=== PATIENT | male | born 1940 | race Caucasian/White ===

== ENCOUNTER 2017-09-09 16:56 | Observation (INO) | payer OTHER ==
--- OUTSIDE RECORDS SUMMARY | 2017-09-09 16:58 | XMS REPORT | Clinical Summary ---
:1940 Author Organization [facility] Address [address] [place] [address] Care Team Providers Name Role Phone Parker Solares MD Primary Care Provider Allergies Active Allergy Reactions Severity Noted Date Comments Abciximab 04/02/2017 Phrrnfc-Nht-Hli Reductase Inhibitors 04/02/2017 Tramadol 04/02/2017 Current Medications Prescription Sig. Disp. Refills Start Date End Date Status aspirin (ECOTRIN) Take 81 mg by Active 81 MG enteric mouth daily. coated tablet pimavanserin Take 2 Active (NUPLAZID) 17 mg tablets by tablet mouth daily. carbidopa-levodopa 2.5 / 2 / 2 / 800 tablet 3 08/30/2017 Active (SINEMET) 25-100 mg 2 per tablet donepezil (ARICEPT) Take 1 tablet 180 tablet 3 08/30/2017 Active 10 MG tablet (10 mg total) by mouth 2 (two) times a day. midodrine Titrate up to 540 tablet 3 08/30/2017 Active (PROAMATINE) 2.5 MG 2 pills tablet 3x/day carbidopa-levodopa Take by 04/02/2017 Discontinued (SINEMET) 25-100 mg mouth. 2.5 per tablet /2.5/ 2 donepezil (ARICEPT) Take 10 mg by 04/02/2017 Discontinued 10 MG tablet mouth nightly. midodrine Take 2.5 mg 04/02/2017 Discontinued (PROAMATINE) 2.5 MG by mouth 3 tablet (three) times a day. midodrine Take 1 tablet 270 tablet 3 04/02/2017 08/30/2017 Discontinued (PROAMATINE) 2.5 MG (2.5 mg tablet total) by mouth 3 (three) times a day. donepezil (ARICEPT) Take 1 tablet 90 tablet 3 04/02/2017 08/30/2017 Discontinued 10 MG tablet (10 mg total) by mouth nightly. 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 (Primary Dx); Dementia due to Parkinson's disease with behavioral disturbance 04/20/2017 Telephone Neurology Hossein Sandoval MD 04/02/2017 Office Visit Neurology Hossein Sandoval, Parkinsonian syndrome associated with idiopathic orthostatic hypotension (Primary Dx); Dementia due to Parkinson's disease with behavioral disturbance; Hallucinations, visual 12/14/2016 Telephone Neurology Hossein Sandoval MD after 09/08/2016 Family History Medical History Relation Name Comments Prostate cancer Father Cancer Mother endometrium Relation Name Status Comments Father Mother Social History Tobacco Use Types Packs/Day Years Used Date Never Smoker Smokeless Tobacco: Never Used Sex Assigned at Date Recorded Not on file Last Filed Vital Signs Vital Sign Reading Time Taken Blood Pressure 119/68 08/30/2017 10:40 AM CDT Pulse 55 08/30/2017 10:40 AM CDT Temperature - - Respiratory Rate - - Oxygen Saturation - - Inhaled Oxygen Concentration - - Weight 77.6 kg (171 lb) 08/30/2017 10:37 AM CDT Height 175.3 cm (5' 9") 08/30/2017 10:37 AM CDT Body Mass Index 25.25 08/30/2017 10:37 AM CDT Plan of Treatment Date Type Specialty Care Team Description 02/03/2018 Office Visit Neurology Hossein Sandoval MD [address] [address] Health Maintenance Due Date Last Done Comments SHINGRIX VACCINE (#1) 1990 ZOSTER VACCINE 2000 PNEUMOCOCCAL POLYSACCHARIDE VACCINE AGE 65 AND OVER 2005 PNEUMOCOCCAL-13 2005 INFLUENZA VACCINE 12/01/2017 Results Not on fileafter 09/08/2016 Insurance Payer Benefit Plan / Group Subscriber ID Type Phone Address MEDICARE MEDICARE PART A AND B xxxxxxxxxx Medicare [place], [place] COMMERCIAL MISC MISC COMMERCIAL xxxxxxxxxx Commercial [phone] [address]
--- NOTE | 2017-09-09 17:44 | RAD REPORT ---
EXAM DESCRIPTION: CT - Head Brain Wo Cont - 09/09/2017 5:38 pm CLINICAL HISTORY: Altered consciousness. COMPARISON: None. TECHNIQUE: All CT scans are performed using dose optimization technique as appropriate and may inclu de automated exposure control or mA/KV adjustment according to patient size. FINDINGS: No intracranial hemorrhage, hydrocephalus or extra-axial fluid collection.Mild generalized brain atrophy is present with mild periventricular and deep white matter chronic microvascular ische nicky changes.No areas of brain edema or evidence of midline shift. The paranasal sinuses and mastoids are clear. The calvarium is intact. IMPRESSION: No acute intracranial abnormality.
--- NOTE | 2017-09-09 18:00 | RAD REPORT ---
EXAM DESCRIPTION: RAD - Chest Single View - 09/09/2017 5:51 pm CLINICAL HISTORY: Chest pain. COMPARISON: 08/23/2017 FINDINGS: Portable technique limits examination quality. The lungs are underinflated with vascular crowding. The heart is upper limit of normal in size with t ortuous thoracic aorta. No displaced fractures. IMPRESSION: Underinflated lungs.
[2017-09-09 18:04] LABS: Absolute Lymphocytes (CBC) 2.2 K/uL (0.7-4.9); Absolute Monocytes 0.7 K/uL (0.1-1.3); Absolute Neutrophil 4.8 K/uL (1.8-8.0); Basophils % 1.2 % (0-1.3); Eosinophils % 4.3 % (0-4.4); Hematocrit 44.7 % (39.6-49.0); MCH 30.9 pg (27.0-35.0); MCV 91.7 fL (80-100); MPV 9.7 fL (7.6-11.3); Monocytes % 8.9 % (3.3-12.3); RBC Red Blood Cell Count 4.88 M/uL (4.33-5.43)
[2017-09-09 18:14] LABS: Protime INR 1.03
--- NOTE | 2017-09-09 18:27 | EDPHYS ---
Physician Documentation [facility] Name: Adilson Pereira Age: 77 yrs Sex: Male : 1940 Arrival Date: 09/09/2017 Time: 17:00 Bed 4 Private MD: ED Physician Chito Luther HPI: 09/09 17:32 This 77 yrs old Male presents to ER via EMS with complaints of Altered Mental mario Status. 17:32 The patient presents with decreased mental status, decreased responsiveness. Onset: The mario symptoms/episode began/occurred just prior to arrival, today. Possible causes: unknown. Associated signs and symptoms: The patient has no apparent associated signs or symptoms. Current symptoms: In the emergency department the patient's symptoms are unchanged from the initial presentation. Patient's baseline: Neuro: alert and fully oriented. Historical: - Allergies: 17:26 tramadol; sg 17:33 Orafsiq-Nba-Usc Reductase Inhibitors; sg 17:33 Reopro; sg - Home Meds: 17:33 carbidopa-levodopa 25-100 mg Oral tab 1 tab 4 times per day [Active]; donepezil 10 mg sg oral tab 1 tab twice daily [Active]; midodrine 2.5 mg oral tab 2 tabs 3 times per day [Active]; Nuplazid 17 mg oral tab 2 tabs once daily [Active]; aspirin 81 mg Oral chew 1 tab once daily [Active]; - PMHx: 17:26 Parkinsons; Dementia; Diverticulitis; Osteoarthritis; BPH; sg - Immunization history:: Adult Immunizations up to date. - Social history:: Smoking status: unknown. ROS: 17:33 Constitutional: Negative for fever, chills, and weight loss, Eyes: Negative for injury, mario pain, redness, and discharge, ENT: Negative for injury, pain, and discharge, Neck: Negative for injury, pain, and swelling, Cardiovascular: Negative for chest pain, palpitations, and edema, Respiratory: Negative for shortness of breath, cough, wheezing, and pleuritic chest pain, Abdomen/GI: Negative for abdominal pain, nausea, vomiting, diarrhea, and constipation, Back: Negative for injury and pain, : Negative for injury, bleeding, discharge, and swelling, MS/Extremity: Negative for injury and deformity, Skin: Negative for injury, rash, and discoloration, Psych: Negative for depression, anxiety, suicide ideation, homicidal ideation, and hallucinations, Allergy/Immunology: Negative for hives, rash, and allergies, Endocrine: Negative for neck swelling, polydipsia, polyuria, polyphagia, and marked weight changes, Hematologic/Lymphatic: Negative for swollen nodes, abnormal bleeding, and unusual bruising. 17:33 Neuro: Positive for altered mental status, speech changes, weakness. Exam: 17:33 Constitutional: This is a well developed, well nourished patient who is awake, alert, mario and in no acute distress. Head/Face: Normocephalic, atraumatic. Eyes: Pupils equal round and reactive to light, extra-ocular motions intact. Lids and lashes normal. Conjunctiva and sclera are non-icteric and not injected. Cornea within normal limits. Periorbital areas with no swelling, redness, or edema. ENT: Nares patent. No nasal discharge, no septal abnormalities noted. Tympanic membranes are normal and external auditory canals are clear. Oropharynx with no redness, swelling, or masses, exudates, or evidence of obstruction, uvula midline. Mucous membranes moist. Neck: Trachea midline, no thyromegaly or masses palpated, and no cervical lymphadenopathy. Supple, full range of motion without nuchal rigidity, or vertebral point tenderness. No Meningismus. Chest/axilla: Normal chest wall appearance and motion. Nontender with no deformity. No lesions are appreciated. Cardiovascular: Regular rate and rhythm with a normal S1 and S2. No gallops, murmurs, or rubs. Normal PMI, no JVD. No pulse deficits. Respiratory: Lungs have equal breath sounds bilaterally, clear to auscultation and percussion. No rales, rhonchi or wheezes noted. No increased work of breathing, no retractions or nasal flaring. Abdomen/GI: Soft, non-tender, with normal bowel sounds. No distension or tympany. No guarding or rebound. No evidence of tenderness throughout. Back: No spinal tenderness. No costovertebral tenderness. Full range of motion. Male : Normal genitalia with no discharge or lesions. Skin: Warm, dry with normal turgor. Normal color with no rashes, no lesions, and no evidence of cellulitis. MS/ Extremity: Pulses equal, no cyanosis. Neurovascular intact. Full, normal range of motion. Psych: Awake, alert, with orientation to person, place and time. Behavior, mood, and affect are within normal limits. 17:33 Neuro: Orientation: unable to test, Mentation: slow to respond, Memory: unable to test, Cranial nerves: is grossly normal based on the patient's age, no acute changes, Cerebellar function: is grossly normal based on the patient's age, no acute changes, Motor: is normal, is grossly normal based on the patient's age, Sensation: is normal, Gait: not tested. Deep tendon reflexes are 2+ (normal) in the bilateral brachioradialis, bicep, tricep and patellar and Achilles tendons, seizure activity, is not displayed by the patient. 19:31 Radiologist reports: neg [facility] Vital Signs: 17:03 BP 141 / 86; Pulse 67; Resp 17; Temp 98.9; Pulse Ox 100% on R/A; sg 18:15 BP 123 / 77; Pulse 62; Resp 17 S; Pulse Ox 96% on R/A; Pain 0/10; sg 19:35 BP 127 / 81; Pulse 59; Resp 16; Pulse Ox 97% ; Pain 0/10; ao MDM: 17:06 Patient medically screened. [facility] 17:37 Data reviewed: vital signs, nurses notes, lab test result(s), EKG, radiologic studies, [facility] CT scan, MRI, plain films. 09/09 17:25 Order name: Basic Metabolic Panel [facility] 09/09 17:25 Order name: BNP [facility] 09/09 17:25 Order name: CBC with Diff; Complete Time: 18:23 [facility] 09/09 17:25 Order name: Ckmb [facility] 09/09 17:25 Order name: CPK [facility] 09/09 17:25 Order name: LFT's [facility] 09/09 17:25 Order name: Magnesium [facility] 09/09 17:25 Order name: PT-INR; Complete Time: 18:23 [facility] 09/09 17:25 Order name: Ptt, Activated; Complete Time: 18:23 [facility] 09/09 17:25 Order name: Troponin (emerg Dept Use Only) [facility] 09/09 17:35 Order name: Urine Culture [facility] 09/09 17:36 Order name: Urine Culture [facility] 09/09 18:38 Order name: Basic Metabolic Panel [facility] 09/09 18:38 Order name: Basic Metabolic Panel [facility] 09/09 17:24 Order name: EKG Electrocardiogram; Complete Time: 20:03 [facility] 09/09 17:25 Order name: XRAY Chest (1 view); Complete Time: 18:23 [facility] 09/09 17:25 Order name: CT Head Brain wo Cont; Complete Time: 18:23 [facility] 09/09 17:34 Order name: MRI - Brain Wo Cont; Complete Time: 19:02 09/09 18:38 Order name: CONS Physician Consult [facility] 09/09 18:38 Order name: Troponin I [facility] 09/09 18:38 Order name: Troponin I [facility] 09/09 18:38 Order name: Troponin I [facility] 09/09 19:34 Order name: Urine Dipstick--Ancillary (enter results) [facility] 09/09 20:55 Order name: Urine Dipstick-Ancillary [facility] 09/09 17:25 Order name: Cardiac monitoring; Complete Time: 17:25 [facility] 09/09 17:25 Order name: EKG - Nurse/Tech; Complete Time: 17:25 [facility] 09/09 17:25 Order name: IV Saline Lock; Complete Time: 17:25 [facility] 09/09 17:25 Order name: Labs collected and sent; Complete Time: 19:07 [facility] 09/09 17:25 Order name: O2 Per Protocol; Complete Time: 17:25 [facility] 09/09 17:25 Order name: O2 Sat Monitoring; Complete Time: 17:25 [facility] 09/09 17:25 Order name: Urine Dipstick-Ancillary (obtain specimen); Complete Time: 19:33 [facility] 09/09 17:37 Order name: Dickens; Complete Time: 19:25 [facility] 09/09 18:14 Order name: Labs - recollect needed; Complete Time: 19:25 Administered Medications: 18:25 Not Given (pt family request medicaiton not be administered until cleared by sg Neurologist): Thiamine 100 mg IV at bolus once 18:25 Not Given (pt family request medicaiton not be administered until cleared by sg Neurologist): foLIC Acid 1 mg IVPB once 19:33 Drug: NS 0.9% 500 ml Route: IV; Rate: bolus; Site: right antecubital; ao 23:00 Follow up: IV Status: Completed infusion; IV Intake: 500ml ao 20:02 Not Given (Patient Refused; pt took medication from home): Carbidopa-Levodopa 25 mg-100 tl1 mg 2 tabs PO once 20:40 Drug: NS 0.9% 1000 ml Route: IV; Rate: 125 ml/hr; Site: left antecubital; ao 09/10 01:59 Follow up: IV Status: Infusion continued upon admission; IV Intake: 500ml ao Point of Care Testing: Blood Glucose: 09/09 17:05 Blood Glucose: 86 mg/dL; aa5 Ranges: Critical Glucose Levels:Adult <50 mg/dl or >400 mg/dl <40 mg/dl or >180 mg/dl Disposition: 09/09/17 18:26 Hospitalization ordered by Toan Solares for Observation. Preliminary diagnosis are Altered mental status, unspecified, Parkinson's disease. - Bed requested for Telemetry/MedSurg (observation). - Status is Observation. ao - Condition is Stable. - Problem is new. - Symptoms have improved. UTI on Admission? No Signatures: Dispatcher [employer] EDMS Nuvia Cole Steven, RN RN sg Anderson, Corey, MD MD cha Calderon, Audri, RN RN aa5 Winston Patricia RN RN ao Lasagna, Tonya RN tl1 Corrections: (The following items were deleted from the chart) 18:43 18:26 Hospitalization Ordered by A Beck SHAW for Observation. Preliminary diagnosis is bd Altered mental status, unspecified; Parkinson's disease. Bed requested for Telemetry/MedSurg (observation). Status is Observation. Condition is Stable. Problem is new. Symptoms have improved. UTI on Admission? No. mario 21:28 18:43 09/09/2017 18:26 Hospitalization Ordered by A Beck SHAW for Observation. ao Preliminary diagnosis is Altered mental status, unspecified; Parkinson's disease. Bed requested for Telemetry/MedSurg (observation). Status is Observation. Condition is Stable. Problem is new. Symptoms have improved. UTI on Admission? No. bd
--- NOTE | 2017-09-09 18:27 | ER ---
Nurse's Notes [facility] Name: Adilson Pereira Age: 77 yrs Sex: Male : 1940 Arrival Date: 09/09/2017 Time: 17:00 Bed 4 Private MD: Diagnosis: Altered mental status, unspecified;Parkinson's disease Presentation: 09/09 17:00 Presenting complaint: EMS states: pt reports about 30 mins ago, the patient became sg altered, not speaking when spoken to, pt family reports that the pt had an episode similar to this in the past and the diagnoses was dehydration, pt sitting upright in a chair upon arrival with eyes closed, and would not answer questions. Transition of care: [facility]. Onset of symptoms was September 09, 2017 at 16:30. Initial Sepsis Screen: Does the patient meet any 2 criteria? No. Patient's initial sepsis screen is negative. Does the patient have a suspected source of infection? No. Patient's initial sepsis screen is negative. Care prior to arrival: IV initiated. 20 GA, in the right antecubital area, Glucose check: 119. 17:00 Method Of Arrival: EMS: [facility] sg 17:00 Acuity: BELINDA 2 sg Historical: - Allergies: 17:26 tramadol; sg 17:33 Iymmfml-Gpy-Pfe Reductase Inhibitors; sg 17:33 Reopro; sg - Home Meds: 17:33 carbidopa-levodopa 25-100 mg Oral tab 1 tab 4 times per day [Active]; donepezil 10 mg sg oral tab 1 tab twice daily [Active]; midodrine 2.5 mg oral tab 2 tabs 3 times per day [Active]; Nuplazid 17 mg oral tab 2 tabs once daily [Active]; aspirin 81 mg Oral chew 1 tab once daily [Active]; - PMHx: 17:26 Parkinsons; Dementia; Diverticulitis; Osteoarthritis; BPH; sg - Immunization history:: Adult Immunizations up to date. - Social history:: Smoking status: unknown. Screenin:01 Abuse screen: Denies threats or abuse. Denies injuries from another. Nutritional ao screening: No deficits noted. Tuberculosis screening: No symptoms or risk factors identified. Fall Risk None identified. Assessment: 17:00 General: Appears in no apparent distress. comfortable, well groomed, well developed, sg well nourished, Behavior is calm, quiet, uncooperative. Pain: Unable to use pain scale. pt nonverbal at this time. Neuro: Level of Consciousness is awake, unresponsive, Oriented to unable to assess at this time. Speech nonverbal at this time. Facial symmetry appears normal, pt will not open eyes at this time. Cardiovascular: Capillary refill is brisk in bilateral fingers Patient's skin is warm and dry. Chest pain unable to assess, d/t pt condition. Respiratory: Airway is patent Respiratory effort is even, unlabored, Respiratory pattern is regular, symmetrical. GI: Abdomen is flat, non-distended, Bowel sounds present X 4 quads. : No deficits noted. EENT: No deficits noted. Derm: Skin is pink, warm \\T\\ dry. Musculoskeletal: No deficits noted. tremors noted, EMS reports hx of parkinson. 17:29 Reassessment: at bedside evaluating pt at this time. sg 18:00 Reassessment: Patient appears in no apparent distress at this time. pt remains off the sg unit at this time in MRI. 18:15 Reassessment: notified pt family states " we do not want any medication sg given, until it is cleared with his neurologist." Orders received to cancel medications. 18:30 Reassessment: Patient appears in no apparent distress at this time. Neuro: Level of sg Consciousness is awake, confused, Oriented to person, place, Speech is normal, Facial symmetry appears normal. Respiratory: Airway is patent Respiratory effort is even, unlabored, Respiratory pattern is regular, symmetrical. Derm: Skin is pink, warm \\T\\ dry. 19:20 General: Appears in no apparent distress. comfortable, Behavior is anxious, ao inappropriate for age. Pain: Denies pain. Neuro: Level of Consciousness is awake, confused, Oriented to person, place. Cardiovascular: Capillary refill < 3 seconds Patient's skin is warm and dry. Respiratory: Airway is patent Respiratory effort is even, unlabored, Respiratory pattern is regular, symmetrical. GI: Abdomen is non-distended. : No signs and/or symptoms were reported regarding the genitourinary system. EENT: No signs and/or symptoms were reported regarding the EENT system. Derm: Skin is normal. Musculoskeletal: No signs and/or symptoms reported regarding the musculoskeletal system. Vital Signs: 17:03 BP 141 / 86; Pulse 67; Resp 17; Temp 98.9; Pulse Ox 100% on R/A; sg 18:15 BP 123 / 77; Pulse 62; Resp 17 S; Pulse Ox 96% on R/A; Pain 0/10; sg 19:35 BP 127 / 81; Pulse 59; Resp 16; Pulse Ox 97% ; Pain 0/10; ao ED Course: 17:00 Patient arrived in ED. sg 17:00 Patient has correct armband on for positive identification. Placed in gown. Bed in low sg position. Call light in reach. Side rails up X2. cardiac monitor technician on. Pulse ox on. NIBP on. 17:00 Arm band placed on. sg 17:03 Triage completed. sg 17:05 EKG done, by electrical service technician. reviewed by Chito Luther MD. at1 17:06 Chito Luther MD is Attending Physician. mario 17:26 Inserted saline lock: 22 gauge in left hand, using aseptic technique. aa5 17:31 Lan Carbone, RN is Primary Nurse. sg 17:[address] vr 17:39 CT Head Brain wo Cont In Process Unspecified. EDMS 17:46 CT completed. Patient tolerated procedure well. Patient moved to radiology. nj 17:51 X-ray completed. Patient tolerated procedure well. Patient moved to radiology. ag1 17:52 XRAY Chest (1 view) In Process Unspecified. EDMS 18:05 Patient moved to MRI via stretcher. ka 18:22 MRI - Brain Wo Cont In Process Unspecified. EDMS 18:22 MRI completed. Patient tolerated well. Patient moved back from MRI. ka 18:25 Toan Solares MD is Hospitalizing Provider. mario 19:24 Dickens cath inserted, using sterile technique, 16 Fr., by ut, balloon inflated, to mt gravity drainage. 20:24 Primary Nurse role handed off by Lan Carbone, RN 21:25 Winston Patricia, JOVAN is Primary Nurse. ao 21:25 No provider procedures requiring assistance completed. Patient admitted, IV remains in ao place. Administered Medications: 18:25 Not Given (pt family request medicaiton not be administered until cleared by sg Neurologist): Thiamine 100 mg IV at bolus once 18:25 Not Given (pt family request medicaiton not be administered until cleared by Neurologist): foLIC Acid 1 mg IVPB once 19:33 Drug: NS 0.9% 500 ml Route: IV; Rate: bolus; Site: right antecubital; ao 23:00 Follow up: IV Status: Completed infusion; IV Intake: 500ml ao 20:02 Not Given (Patient Refused; pt took medication from home): Carbidopa-Levodopa 25 mg-100 tl1 mg 2 tabs PO once 20:40 Drug: NS 0.9% 1000 ml Route: IV; Rate: 125 ml/hr; Site: left antecubital; ao 09/10 01:59 Follow up: IV Status: Infusion continued upon admission; IV Intake: 500ml ao Point of Care Testing: Blood Glucose: 09/09 17:05 Blood Glucose: 86 mg/dL; aa5 Ranges: Intake: 23:00 IV: 500ml; Total: 500ml. ao 09/10 01:59 IV: 500ml; Total: 1000ml. ao Outcome: 09/09 18:26 Decision to Hospitalize by Provider. mario 21:26 Admitted to Tele accompanied by tech, room 426, Report called to Jaynesophia ao 21:26 Condition: stable 21:26 Instructed on the need for admit. 21:28 Patient left the ED. ao Signatures: Dispatcher [employer] EDMS Lan Carbone RN Chito Cyr MD MD cha Calderon, Audri, RN RN Luz Holm Amanda, olive grader EKG Tat1 Roxann Montano ag1 Lauren Jose Alex RN RN Jimmy Vazquez, [facility] Luci Sanchez RN tl1 Corrections: (The following items were deleted from the chart) 20:10 17:00 Neuro: Level of Consciousness is awake, unresponsive, Oriented to unable to sg assess at this time. Speech nonverbal at this time. pt will not open eyes at this time. sg
[2017-09-09] MEDS ORDERED: ACETAMINOPHEN 500 MG TAB PO PRN (18:34)
[2017-09-09] MEDS ORDERED: ONDANSETRON 4 MG/2 ML VIAL IV PRN (18:34)
--- NOTE | 2017-09-09 18:38 | RAD REPORT ---
EXAM DESCRIPTION: MRI - Brain Wo Cont - 09/09/2017 6:27 pm CLINICAL HISTORY: Altered consciousness COMPARISON: CT head 09/09/2017 TECHNIQUE: Multi-sequence, multiplanar MR imaging of the brain was performed without contrast. FINDINGS: No intracranial hemorrhage, hydrocephalus or extra-axial fluid collections.Mild confluent T2/FLAIR hyperintensity in the periventricular and deep white matter is present compatible with chron ic microvascular ischemic changes. No edema or shift of midline structures. 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 DWI is negative for acute CVA. Midline structures are normally formed. Mastoid air cells and paranasal sinuses are clear. IMPRESSION: No acute intracranial abnormality. No acute CVA.
[2017-09-09 19:12] LABS: Potassium 4.1 mEq/L (3.6-5.0)
[2017-09-09 19:19] LABS: Albumin 3.7 g/dL (3.2-5.5); Bilirubin Direct 0.1 mg/dL (0-0.2); Bilirubin Total 0.5 mg/dL (0.3-1.2); Magnesium 2.1 mg/dL (1.8-2.5); Protein, Total 6.2 g/dL (6.0-8.3)
[2017-09-09] MEDS ORDERED: NA CHLORIDE 0.9% 1,000 ML ONE (19:28)
[2017-09-09 20:44] LABS: CKMB Creatine Kinase MB 1.8 ng/ml (0.3-4.0)
[2017-09-09 20:55] LABS: Urine Blood NEGATIVE (NEG); Urine Glucose NEGATIVE (NEG); Urine Protein NEGATIVE (NEG); Urine pH 6.5 (5.0-7.0)
[2017-09-09] MEDS: NA CHLORIDE 0.9% 1,000 ML IV SCH (22:38)
[2017-09-10] MEDS: NA CHLORIDE 0.9% 1,000 ML IV SCH ×2 (05:30→11:00)
[2017-09-10 06:27] LABS: Urine Appearance CLOUDY; Urine Bilirubin NEGATIVE (NEG); Urine Blood 2+ (NEG); Urine Color YELLOW; Urine Glucose NEGATIVE (NEG); Urine Protein NEGATIVE (NEG)
[2017-09-10 06:28] LABS: Urine Microscopic Reflex ORDER UMIC
[2017-09-10 06:33] LABS: Absolute Lymphocytes (CBC) 1.7 K/uL (0.7-4.9); Absolute Monocytes 0.6 K/uL (0.1-1.3); Absolute Neutrophil 5.6 K/uL (1.8-8.0); Basophils % 1.1 % (0-1.3); Eosinophils % 3.3 % (0-4.4); Hematocrit 40.3 % (39.6-49.0); Lymphocytes % 20.1 % (15.3-44.8); MCV 92.4 fL (80-100); MPV 9.6 fL (7.6-11.3); Monocytes % 7.3 % (3.3-12.3); RBC Red Blood Cell Count 4.36 M/uL (4.33-5.43)
[2017-09-10 06:43] LABS: Urine Culture Reflex Order NOT NEEDED
[2017-09-10 06:44] LABS: BUN Blood Urea Nitrogen 17 mg/dL (6-20); Bicarbonate 26 mEq/L (21-31); Glucose Level 96 mg/dL (65-120); Potassium 4.2 mEq/L (3.6-5.0); Sodium Level 140 mEq/L (135-145)
[2017-09-10 06:45] LABS: Urine Bacteria <20 /HPF (NONE SEEN)
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
[2017-09-10] MEDS ORDERED: ASPIRIN EC 81 MG TAB PO SCH (09:00)
--- NOTE | 2017-09-10 10:30 | EKG ---
Test Date: 2017-09-09 Test Time: 17:00:40 Director Of Market Research: ALVERTO MEASUREMENT RESULTS: Intervals: Rate: 64 LA: 154 QRSD: 76 QT: 432 QTc: 445 [place]: P: 30 LA: 154 QRS: -6 T: 36 INTERPRETIVE STATEMENTS: Normal sinus rhythm Possible Left atrial enlargement Septal infarct, age undetermined Abnormal ECG No previous ECG available for comparison Electronically Signed On 09-10-17 10:27:15 CDT by Yossi Ly
--- NOTE | 2017-09-10 15:50 | EKG ---
Test Date: 2017-09-10 Test Time: 10:02:29 Stave Jointer: MELIA MEASUREMENT RESULTS: Intervals: Rate: 50 NJ: 186 QRSD: 88 QT: 444 QTc: 404 [place]: P: 12 NJ: 186 QRS: -11 T: 38 INTERPRETIVE STATEMENTS: Sinus bradycardia Possible Anterior infarct, age undetermined Abnormal ECG Compared to ECG 09/09/2017 17:00:40 Sinus rhythm no longer present Myocardial infarct finding still present Electronically Signed On 09-10-17 15:50:16 CDT by Igor Clemons
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
== END 2017-09-10 15:15 ==
LOC: ER 16:56 → ERHOLD 18:26 → 4TH 20:08
PROVIDERS: ADMIT Internal Medicine; ATTEND Internal Medicine
DX: R55 Syncope and collapse (principal); R41.82 Altered mental status, unspecified; G20 Parkinson's disease; F02.80 Dementia in other diseases classified elsewhere, unspecified severity, without behavioral disturbance, psychotic disturbance, mood disturbance, and anxiety; I95.1 Orthostatic hypotension; I25.10 Atherosclerotic heart disease of native coronary artery without angina pectoris; N40.0 Benign prostatic hyperplasia without lower urinary tract symptoms; M19.90 Unspecified osteoarthritis, unspecified site; K57.90 Diverticulosis of intestine, part unspecified, without perforation or abscess without bleeding; K21.9 Gastro-esophageal reflux disease without esophagitis; Z95.5 Presence of coronary angioplasty implant and graft
CPT/HCPCS: 36415; 51702; 70450; 70551; 71045; 80048 ×2; 80076; 81003; 82550; 82553; 82962; 83735; 83880; 84484 ×2; 85025 ×2; 85610; 85730; 87086; 93005 ×2; 96360; 96361; 97163; 99285; G0378 ×2; J7030 ×3; 81015; 87088

== ENCOUNTER 2017-09-30 19:09 | Observation (INO) | payer OTHER ==
--- OUTSIDE RECORDS SUMMARY | 2017-09-30 19:11 | XMS REPORT | Clinical Summary ---
:1940 Author Organization [facility] Address [address] [place] [address] Care Team Providers Name Role Phone Parker Solares MD Primary Care Provider Allergies Active Allergy Reactions Severity Noted Date Comments Abciximab 04/02/2017 Fmlgvbn-Xnz-Flt Reductase Inhibitors 04/02/2017 Tramadol 04/02/2017 Current Medications [...] 12/14/2016 Telephone Neurology Hossein Sandoval MD after 09/29/2016 Family History Medical History Relation Name Comments [...] 02/03/2018 Office Visit Neurology Hossein Sandoval MD [address] [address] Health Maintenance Due Date Last Done Comments SHINGRIX VACCINE (#1) 1990 ZOSTER VACCINE 2000 PNEUMOCOCCAL POLYSACCHARIDE VACCINE AGE 65 AND OVER 2005 PNEUMOCOCCAL-13 2005 INFLUENZA VACCINE 12/01/2017 Results Not on fileafter 09/29/2016 Insurance Payer Benefit Plan / Group Subscriber ID Type Phone Address MEDICARE MEDICARE PART A AND B xxxxxxxxxx Medicare [place], [place] COMMERCIAL MISC MISC COMMERCIAL xxxxxxxxxx Commercial [phone] [address]
[2017-09-30] MEDS ORDERED: NA CHLORIDE 0.9% 1,000 ML ONE (20:24)
[2017-09-30 20:40] LABS: Absolute Lymphocytes (CBC) 1.2 K/uL (0.7-4.9); Absolute Monocytes 0.6 K/uL (0.1-1.3); Absolute Neutrophil 5.3 K/uL (1.8-8.0); Basophils % 1.3 % (0-1.3); Lymphocytes % 16.5 % (15.3-44.8); MCH 30.8 pg (27.0-35.0); MCV 91.1 fL (80-100); Monocytes % 7.5 % (3.3-12.3)
[2017-09-30 20:51] LABS: Potassium 3.6 mEq/L (3.6-5.0)
[2017-09-30 20:53] LABS: Urine Bacteria <20 /HPF (NONE SEEN); Urine Culture Reflex Order NOT NEEDED
[2017-09-30 20:54] LABS: Urine Blood 1+ (NEG); Urine Glucose NEGATIVE (NEG); Urine Protein NEGATIVE (NEG); Urine Specific Gravity 1.025 (1.005-1.030); Urine pH 5.5 (5.0-7.0)
[2017-09-30 20:56] LABS: Protime INR 1.08
--- NOTE | 2017-09-30 22:02 | RAD REPORT ---
EXAM DESCRIPTION: CT - Head Brain Wo Cont - 09/30/2017 9:36 pm CLINICAL HISTORY: Altered mental status COMPARISON: CT head September 09 TECHNIQUE: Axial 5 mm thick images of the head were obtained without IV contrast. All CT scans are performed using dose optimization technique as appropriate and may include automated exposure control or mA/KV adjustment according to patient size. FINDINGS: No intracranial hemorrhage, mass, edema or shift of mid-line structures. No acute infarcti on changes seen. No abnormal extra-axial fluid collections. Atrophy and chronic ischemic changes are present moderate in degree. Ventricles are in proportion to volume loss. Arterial and physiologic maryellen cifications are present. Intracranial findings are similar to comparison. Mastoid air cells and visualized portions of the paranasal sinuses are clear. No acute bony findings. IMPRESSION: Moderate atrophy and chronic ischemic change similar to comparison. No acute intracranial finding.
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
--- NOTE | 2017-09-30 22:22 | EDPHYS ---
Physician Documentation [facility] Name: Adilson Pereira Age: 77 yrs Sex: Male : 1940 Arrival Date: 09/30/2017 Time: 19:10 Bed 17 Private MD: Toan Solares C ED Physician Julien Schmitt HPI: 09/30 20:46 This 77 yrs old Male presents to ER via EMS with complaints of confusion tw4 altered mental status. 23:51 The patient presents with agitation, confusion. Onset: The symptoms/episode tw4 began/occurred yesterday. Possible causes: sepsis, the patient has a known UTI history, the patient lives in a alf, unknown. Associated signs and symptoms: The patient has no apparent associated signs or symptoms. Current symptoms: In the emergency department the patient's symptoms are unchanged from the initial presentation. The patient has not experienced similar symptoms in the past. 23:51 Unable to obtain HPI due to patient's inability to understand questions. history tw4 obtained from family. Historical: - Allergies: 19:30 Reopro; ea 19:30 Vjrrgam-Xgg-Zjb Reductase Inhibitors; ea 19:30 tramadol; ea - Home Meds: 19:30 aspirin 81 mg Oral chew 1 tab once daily [Active]; donepezil 10 mg Oral tab 1 tab twice ea daily [Active]; carbidopa-levodopa 25-100 mg Oral tab 1 tab 4 times per day [Active]; midodrine 2.5 mg Oral tab 2 tabs 3 times per day [Active]; Nuplazid 17 mg Oral tab 2 tabs once daily [Active]; - PMHx: 19:30 BPH; Dementia; Diverticulitis; osteoarthritis; Parkinsons; ea - Immunization history:: Adult Immunizations up to date. - Social history:: Smoking status: Patient/guardian denies using tobacco. - Ebola Screening: : No symptoms or risks identified at this time. ROS: 23:51 Constitutional: Negative for fever, chills, and weight loss, Cardiovascular: Negative tw4 for chest pain, palpitations, and edema, Respiratory: Negative for shortness of breath, cough, wheezing, and pleuritic chest pain, Abdomen/GI: Negative for abdominal pain, nausea, vomiting, diarrhea, and constipation, Back: Negative for injury and pain, MS/Extremity: Negative for injury and deformity. 23:51 Neuro: Positive for altered mental status, Negative for dizziness, headache, hearing loss, loss of consciousness, numbness, seizure activity, speech changes, syncope, near syncope, weakness. Exam: 23:53 Constitutional: This is a well developed, well nourished patient who is awake, alert, tw4 and in no acute distress. Head/Face: Normocephalic, atraumatic. Chest/axilla: Normal chest wall appearance and motion. Nontender with no deformity. No lesions are appreciated. Cardiovascular: Regular rate and rhythm with a normal S1 and S2. No gallops, murmurs, or rubs. Normal PMI, no JVD. No pulse deficits. Respiratory: Lungs have equal breath sounds bilaterally, clear to auscultation and percussion. No rales, rhonchi or wheezes noted. No increased work of breathing, no retractions or nasal flaring. Abdomen/GI: Soft, non-tender, with normal bowel sounds. No distension or tympany. No guarding or rebound. No evidence of tenderness throughout. Back: No spinal tenderness. No costovertebral tenderness. Full range of motion. MS/ Extremity: Pulses equal, no cyanosis. Neurovascular intact. Full, normal range of motion. 23:53 Neuro: Orientation: is normal, Mentation: is normal, Memory: is normal. 23:53 Psych: Behavior/mood is pleasant, Affect is flat, Not oriented to place, time, Patient has no thoughts/intents to harm self or others. Judgement / Insight is impaired. Vital Signs: 19:21 BP 117 / 66; Pulse 61; Resp 17; Temp 98.1; Pulse Ox 98% on R/A; mw2 21:45 BP 130 / 74; Pulse 50; Resp 17; Pulse Ox 97% on R/A; rk2 23:00 BP 135 / 83; Pulse 50; Resp 17; Pulse Ox 98% on R/A; rk2 MDM: 19:24 Patient medically screened. tw4 23:53 Differential Diagnosis: CVA, electrolyte abnormality, hypoglycemia, meningitis, tw4 seizure, TIA, volume depletion. Data reviewed: vital signs, nurses notes. Counseling: I had a detailed discussion with the patient and/or guardian regarding: the historical points, exam findings, and any diagnostic results supporting the discharge/admit diagnosis, lab results, radiology results. Physician consultation: Parker Solares MD was contacted at 21:45, regarding admission, need to evaluate the patient as soon as possible, and will see patient in inpatient room. Admission orders: after a detailed discussion of the patient's condition and case, the admit orders are written by me. ED course: Pt rested comfortably during his stay in the ED. 09/30 20:13 Order name: Basic Metabolic Panel; Complete Time: 21:13 [facility] 09/30 21:13 Interpretation: GLUC 166; BUN 23; GFR 71. [facility] 09/30 20:13 Order name: CBC with Diff; Complete Time: 21:13 [facility] 09/30 21:13 Interpretation: Within normal limits. [facility] 09/30 20:13 Order name: Protime (+inr); Complete Time: 21:13 [facility] 09/30 21:13 Interpretation: Normal except: PT 12.8. [facility] 09/30 20:13 Order name: Ptt, Activated; Complete Time: 21:13 [facility] 09/30 20:13 Order name: Urine Microscopic Only; Complete Time: 21:13 [facility] 09/30 21:13 Interpretation: Normal except: URBC 10-20. [facility] 09/30 20:34 Order name: Glucose, Ancillary Testing; Complete Time: 21:13 [facility] 09/30 20:13 Order name: EKG; Complete Time: 20:14 [facility] 09/30 20:13 Order name: Accucheck; Complete Time: 20:34 [facility] 09/30 20:13 Order name: Cardiac monitoring; Complete Time: 20:57 [facility] 09/30 20:13 Order name: EKG - Nurse/Tech; Complete Time: 20:57 [facility] 09/30 20:37 Order name: Urine Dipstick--Ancillary (enter results); Complete Time: 21:13 [facility] 09/30 21:14 Order name: CT Head Brain wo Cont; Complete Time: 22:15 [facility] 09/30 23:14 Order name: Urinalysis [facility] 09/30 20:13 Order name: IV Saline Lock; Complete Time: 20:36 [facility] 09/30 20:13 Order name: Labs collected and sent; Complete Time: 20:57 [facility] 09/30 20:13 Order name: NPO; Complete Time: 20:36 [facility] 09/30 20:13 Order name: O2 Per Protocol; Complete Time: 20:36 4 09/30 20:13 Order name: O2 Sat Monitoring; Complete Time: 20:36 4 09/30 20:13 Order name: Urine Dipstick-Ancillary (obtain specimen); Complete Time: 20:36 4 Administered Medications: 20:35 Drug: NS 0.9% 1000 ml Route: IV; Rate: 125 ml/hr; Site: right antecubital; rk2 Point of Care Testing: Blood Glucose: 20:35 Blood Glucose: 156 mg/dL; rk2 Ranges: Critical Glucose Levels:Adult <50 mg/dl or >400 mg/dl <40 mg/dl or >180 mg/dl Disposition: 09/30/17 22:21 Hospitalization ordered by Parker Solares for Observation. Preliminary diagnosis is Altered mental status, unspecified. - Bed requested for Telemetry/MedSurg (observation). - Status is Observation. rk2 - Condition is Stable. - Problem is new. - Symptoms have improved. UTI on Admission? No Signatures: Dispatcher [employer] EDOR Tosha Pozo RN RN mw Antunez, Elena, RN RN ea Wadley, Terrence, MD MD tw4 Marta Matthews RN RN rk2 Corrections: (The following items were deleted from the chart) 22:49 22:21 Hospitalization Ordered by Parker Solares MD for Observation. Preliminary diagnosis mw is Altered mental status, unspecified. Bed requested for Telemetry/MedSurg (observation). Status is Observation. Condition is Stable. Problem is new. Symptoms have improved. UTI on Admission? No. tw4 10/01 00:46 09/30 22:49 09/30/2017 22:21 Hospitalization Ordered by Parker Solares MD for Observation. rk2 Preliminary diagnosis is Altered mental status, unspecified. Bed requested for Telemetry/MedSurg (observation). Status is Observation. Condition is Stable. Problem is new. Symptoms have improved. UTI on Admission? No. mw
[2017-09-30] MEDS ORDERED: ACETAMINOPHEN 500 MG TAB PO PRN (23:12)
[2017-09-30] MEDS ORDERED: ONDANSETRON 4 MG/2 ML VIAL IV PRN (23:12)
--- NOTE | 2017-10-01 06:51 | EKG ---
Test Date: 2017-09-30 Test Time: 20:58:30 Supervisor Dock: ADAN MEASUREMENT RESULTS: Intervals: Rate: 47 SC: 170 QRSD: 86 QT: 460 QTc: 407 [place]: P: 4 SC: 170 QRS: -20 T: 29 INTERPRETIVE STATEMENTS: Sinus bradycardia Septal infarct, age undetermined Abnormal ECG Compared to ECG 09/10/2017 10:02:29 No significant changes Electronically Signed On 10-01-17 06:50:38 CDT by Igor Clemons
[2017-10-01] MEDS: DONEPEZIL HCL 10 MG PO SCH ×2 (09:00→21:48)
[2017-10-01] MEDS: CARBIDOPA PO SCH ×4 (09:00→21:48)
[2017-10-01] MEDS: HOME MED 1 EA UNK (Midodrine Hcl [Midodrine Hcl] 2.5 MG) PO SCH ×3 (09:00→21:48)
[2017-10-01] MEDS: LEVODOPA PO SCH ×4 (09:00→21:48)
[2017-10-01] MEDS: ASPIRIN 81 MG PO SCH (09:00)
--- NOTE | 2017-10-01 17:30 | HP ---
Date of Admission: 10/01/2017 Chief Complaint: Confusion and agitation. History Of Present Illness: This is a 77-year-old pleasant male patient, who was recently admitted to [facility] across the street from the hospital beginning of last month. The patient had 1 admission to the hospital on 09/09/2017 with fainting type of spell. Since he has been there, lately he has been having some behavior problem where he gets agitated, some aggressive behavior and some destructive behavior also as reported by the patient's daughter that blinds in his room were found to be damaged. Yesterday , he had another such episode where he was agitated, confused, and having some anger issues so he was sent to emergency room from the [facility]. This is happening frequently and lately. So after he was evaluated in ER, he was admitted to the hospital. No fall. No injury. This morning when I saw him , his daughter was present with him at bedside. He sees his neurologist Dr. Sandoval in [place] for management of Parkinson's problem. Medications: List reviewed. Allergies: HE IS LISTED ALLERGIC TO PRAVASTATIN, TRAMADOL, AND ABCIXIMAB. Review of Systems: [employer] SECRETARY: As mentioned above. Psychiatry: As mentioned above. All other systems reviewed and negative. Past Medical History: Significant for orthostatic hypotension, diverticulosis, Parkinson disease, coronary artery disease, benign prostatic hypertrophy, dementia, gastroesophageal reflux disease, osteoarthritis at multiple sites. Past Surgical History: Coronary artery stent placement, knee replacement surgery. Family History: Significant for prostate cancer and some other unknown type of cancer. Social History: Negative for smoking and alcohol use. Physical Examination: Vital Signs: Last vital signs this morning; temperature 97.7, pulse 48, respiratory rate 18, blood pressure 117/73. Height 5 feet 9 inches. Weight 173 pounds. General: Awake, alert, oriented, not in distress. HEENT: Head atraumatic, normocephalic. Conjunctivae nonerythematous. Sclerae white. Mouth, no thrush or edema noted. Ears/Nose, no mass, lesion, discharge noted. Neck: Supple. No JVD, lymph nodes, bruit, thyromegaly noted. Lungs: Bilateral good equal air entry. Clear to auscultation. No rhonchi. No rales. Heart: Normal heart sounds, no murmur or gallop. Abdomen: Soft, bowel sounds normal. No guarding, rigidity, tenderness, mass, hepatosplenomegaly, distention, or bruit noted. Extremities: No leg edema. No calf tenderness. Skin: No rash, ulcer, cellulitis. Lymphatics: No lymph node enlargement in neck, supraclavicular, infraclavicular region. Neuro: No focal neurological deficit. Chest: Unremarkable. External Genitalia: Deferred. Rectal: Deferred. Laboratory Data: Urinalysis; 1+ blood, 10-20 rbc's, otherwise negative. Sodium 139, potassium 3.6, chloride 104, bicarb 30, BUN 23, creatinine 1.02, glucose 166, calcium 8.6. White count 7.5, hemoglobin 13.9, platelets 195. CAT scan of the brain was negative for any acute intracranial changes. Impression: 1. Dementia with behavior problems. 2. Parkinson disease. 3. Orthostatic hypotension. 4. Coronary artery disease. 5. Benign prostatic hypertrophy. 6. Osteoarthritis, multiple sites. 7. Diverticulosis. 8. Gastroesophageal reflux disease. Plan: Admit the patient to hospital for further evaluation and management of this problem. The patient is appropriate for observation. We will continue his home medications per order. I did talk to the patient and the patient's daughter that this unfortunate problem that we have with his behavior problem is related to his dementia and it is important that we need to go ahead and address that couple of ways to handle it. One is to send him back to [facility] and continue to try to make some adjustment on his medication or other option, which is a better option in my mind is to refer him to Geropsych Unit at [facility] in [place]. Daughter is going to discuss this with the patient's and once they make the decision, public health social worker will be able to assist with discharge planning. The patient is stable for discharge as soon as arrangements get completed. ARVIN/LESLIE Voice ID: [id number] SG
[2017-10-01] MEDS ORDERED: ZIPRASIDONE MESYLA 20 MG/VIAL IM ONE (18:42)
[2017-10-01] MEDS ORDERED: WATER FOR INJ,STERILE 10 ML IM PRN (18:42)
[2017-10-01] MEDS ORDERED: HALOPERIDOL LACT 5 MG/ML INJ IV PRN (18:42)
--- NOTE | 2017-10-01 18:57 | DS ---
Date of Discharge: 10/01/2017 Physical Examination: For physical exam, see copy of today's H and P. Disposition: Transferred to go to [facility]. Discharge Diagnoses: 1.Dementia with behavior problems. 2.Parkinson disease. 3.Orthostatic hypotension. 4.Coronary artery disease. 5.Benign prostatic hypertrophy. 6.Osteoarthritis, multiple sites. 7.Diverticulosis. 8.Gastroesophageal reflux disease. Hospital Course: A 77-year-old male patient, admitted to the hospital with confusion and agitation. Please see dictated H and P for more information. After the patient was evaluated this morning, we did consult Social Service and after arrangements completed, the patient was transferred to go to [place] for further psychiatric care. ARVIN/MODL Voice ID: [id number] Report ID: [id number]
[2017-10-01] MEDS ORDERED: HOME MED 1 EA UNK (Pimavanserin Tartrate [Nuplazid] 2 TAB) PO SCH (21:00)
[2017-10-02] MEDS: CARBIDOPA PO SCH (09:35)
[2017-10-02] MEDS: LEVODOPA PO SCH (09:35)
[2017-10-02] MEDS: ASPIRIN 81 MG PO SCH (09:36)
[2017-10-02] MEDS: HOME MED 1 EA UNK (Midodrine Hcl [Midodrine Hcl] 2.5 MG) PO SCH (09:36)
[2017-10-02] MEDS: DONEPEZIL HCL 10 MG PO SCH (09:36)
== END 2017-10-02 12:30 ==
LOC: ER 19:09 → ERHOLD 23:21 → 4TH 23:55
PROVIDERS: ADMIT Internal Medicine; ATTEND Internal Medicine
DX: F03.91 Unspecified dementia, unspecified severity, with behavioral disturbance (principal); G20 Parkinson's disease; F02.81 Dementia in other diseases classified elsewhere, unspecified severity, with behavioral disturbance; I95.1 Orthostatic hypotension; I25.10 Atherosclerotic heart disease of native coronary artery without angina pectoris; N40.0 Benign prostatic hyperplasia without lower urinary tract symptoms; M19.90 Unspecified osteoarthritis, unspecified site; K57.90 Diverticulosis of intestine, part unspecified, without perforation or abscess without bleeding; K21.9 Gastro-esophageal reflux disease without esophagitis; Z95.5 Presence of coronary angioplasty implant and graft; Z96.659 Presence of unspecified artificial knee joint
CPT/HCPCS: 36415; 70450; 80048; 82962; 85025; 85610; 85730; 93005; 99285; G0378 ×2; J3486; J7030; 81003; 81015

== ENCOUNTER 2018-01-25 20:29 | Emergency (ER) | payer OTHER ==
--- OUTSIDE RECORDS SUMMARY | 2018-01-25 20:31 | XMS REPORT | Clinical Summary ---
:1940 Author Organization [facility] Address [address] [place] [address] Care Team Providers Name Role Phone Parker Solares MD Primary Care Provider Allergies Active Allergy Reactions Severity Noted Date Comments Abciximab 04/02/2017 Jdjmjoy-Aas-Icw Reductase Inhibitors 04/02/2017 Tramadol 04/02/2017 Current Medications [...] Parkinson's disease with behavioral disturbance; Hallucinations, visual after 01/24/2017 Family History Medical History Relation Name Comments [...] Treatment Date Type Specialty Care Team Description 04/04/2018 Office Visit Neurology Hossein Sandoval MD [address] [facility] [address] [place] [address] [id number] Health Maintenance Due Date Last Done Comments SHINGRIX VACCINE (#1) 1990 ZOSTER VACCINE 2000 PNEUMOCOCCAL POLYSACCHARIDE VACCINE AGE 65 AND OVER 2005 PNEUMOCOCCAL-13 2005 INFLUENZA VACCINE 12/01/2017 Results Not on fileafter 01/24/2017 Insurance Payer Benefit Plan / Group Subscriber ID Type Phone Address MEDICARE MEDICARE PART A AND B xxxxxxxxxx Medicare [place], [place] COMMERCIAL MISC MISC COMMERCIAL xxxxxxxxxx Commercial [phone] [id number]
--- NOTE | 2018-01-25 21:10 | RAD REPORT ---
EXAM DESCRIPTION: CT - Head C Spine Cap W Con - 01/25/2018 8:52 pm CLINICAL HISTORY: Fall, head, neck, chest and abdomen pain, history of anticoagulation therapy COMPARISON: CT head August 2017 TECHNIQUE: Axial [address] head images were obtained. Axial [address] cervical spine images were obtaine d with sagittal and coronal reconstruction images reviewed. During dynamic enhancement of 100mL non-i onic contrast, axial 5 mm images of the chest, abdomen and pelvis were obtained. All CT scans are performed using dose optimization technique as appropriate and may include automated exposure control or mA/KV adjustment according to patient size. FINDINGS: No intracranial hemorrhage, mass or edema. No midline shift or abnormal fluid collection. Patient has prominent atrophy and mild chronic ischemic change. Ventricles are in proportion to volum e loss. Intracranial findings are similar to the comparison. Mild frontal scalp hematomas are present . No foreign body. Mastoid air cells and paranasal sinuses are clear. No skull fracture. CT cervical spine imaging shows normal height. There is reversal of the usual cervical lordosis at th e C5 level with a very slight retrolisthesis of C5 relative to C6. Significant C5-6 disc space narrow ing and spurring changes are present. Bony foraminal encroachment present at C5-6 and C6-7. C2-3 disc space is narrowed possibly a partial congenital fusion. No paraspinal mass or hematoma seen. Central canal detail is inherently limited. Concerns for traumatic disc herniation or traumatic cord injury can be further addressed with MR imaging. An enlarged nodular thyroid gland is present incompletely assessed on this study. Atelectasis changes are present. No pneumothorax or pulmonary contusion. No mediastinal hematoma and the aorta and pulmo nary arteries are unremarkable. No chest will mass or abnormal axillary finding. No displaced rib fra cture or other significant bony finding. Old rib fracture changes are present. CT abdomen and pelvis show no injury to solid abdominal viscera. Gallbladder and biliary tree are unr emarkable. No gastric dilatation or wall thickening. No dilated small bowel loop. Patient has a large amount of stool distending the colon. Rectal stool volume causes dilation. Prostate gland is enlarge d. No free air, free fluid or abnormal stranding. No urinary bladder acute finding. There is a modera tely large diverticulum left lateral border. Disc and bony degenerative changes are present. No acute thoracic or lumbar spine finding. IMPRESSION: Prominent atrophy with no hemorrhage or acute intracranial finding. Intracranial finding s are similar to August 2017. Cervical spine degenerative pattern as detailed above. An acute process is not suspected. No pneumothorax or other acute chest finding. Patient has an enlarged nodular thyroid gland that is n ot fully assessed on this study. No acute injury of the abdomen or pelvis. Patient has a large amount of stool volume distending the c olon and dilating the rectum.
[2018-01-25] MEDS ORDERED: TETANUS & DIPHTHERIA TOX,ADULT 0.5 ML VIAL ONE (21:31)
--- NOTE | 2018-01-25 22:03 | ER ---
Nurse's Notes [facility] Name: Adilson Pereira Age: 77 yrs Sex: Male : 1940 Arrival Date: 01/25/2018 Time: 20:35 Bed 4 Private MD: Toan Solares C Diagnosis: Acute post-traumatic headache Presentation: 01/25 20:25 Presenting complaint: EMS states: that pt fell out of wheel chair and hit head on fc floor. Pt was given pain medication prior to fall. Pt has laceration to right forehead with knot. Pt is not talking but they state that this is normal for pt, that they were told by alf that pt is not oriented. Care prior to arrival: Bleeding of injury controlled. Medication(s) given: Normal saline infusion, 500 mL, IV initiated. 22 GA, in the left wrist, Glucose check: 140. Mechanism of Injury: Fall out of chair. Trauma event details: Injury occurred in the [facility], Injury occurred: skilled nursing Injury occurred: January 25, 2018. 20:25 Acuity: BELINDA 2 fc 20:25 Method Of Arrival: EMS: [facility] 20:25 Transition of care: patient was received from another setting of care (long-term care facility), [facility]. Onset of symptoms was January 25, 2018. Risk Assessment: Do you want to hurt yourself or someone else? Patient reports no desire to harm self or others. Initial Sepsis Screen: Does the patient meet any 2 criteria? Systolic BP < 90 mmHg. Yes Does the patient have a suspected source of infection? No. Patient's initial sepsis screen is negative. Trauma Activation: Alert Physician: ED Physician; Name: Ivania; Notified At: 20:28; Arrived At: 20:28 Physician: General Surgeon; Name: ; Notified At: 20:28; Arrived At: Physician: Radiology; Name: Luz Steen Brittany; Notified At: 20:28; Arrived At: 20:28 Physician: Respiratory; Name: Finesse; Notified At: 20:28; Arrived At: 20:35 Physician: Lab; Name: ; Notified At: 20:28; Arrived At: Historical: - Allergies: 20:59 Reopro; fc 20:59 Adwzebb-Cfn-Ykp Reductase Inhibitors; fc 20:59 tramadol; fc - Home Meds: 20:59 Miralax 17 gram/dose Oral powd once daily [Active]; Xarelto 10 mg oral tab 1 tab once fc daily [Active]; midodrine 2.5 mg Oral tab .5 tab 3 times per day [Active]; docusate sodium 100 mg Oral cap 1 cap once daily [Active]; carbidopa-levodopa 25-100 mg Oral tab 2 tabs 4 times per day [Active]; Ativan 0.5 mg Oral tab 1 tab tid prn [Active]; Seroquel 100 mg Oral tab 2.5 tabs nightly [Active]; - PMHx: 20:59 CAD; Myocardial infarction; hypotension; Kidney stones; Parkinsons; Dementia; BPH; fc Diverticulitis; osteoarthritis; - Immunization history: Last tetanus immunization: unknown. - Social history:: Smoking status: Patient/guardian denies using tobacco, Patient/guardian denies using alcohol, street drugs, The patient lives with family. - Ebola Screening: : Patient negative for fever greater than or equal to 101.5 degrees Fahrenheit, and additional compatible Ebola Virus Disease symptoms Patient denies exposure to infectious person Patient denies travel to an Ebola-affected area in the 21 days before illness onset. - Family history:: not pertinent. Screenin:25 Abuse screen: Denies threats or abuse. Tuberculosis screening: No symptoms or risk fc factors identified. 20:52 Nutritional screening: No deficits noted. Fall Risk Fall in past 12 months (25 points). fc Secondary diagnosis (15 points) dementia, impaired mobility, IV access (20 points). Ambulatory Aid- None/Bed Rest/Nurse Assist (0 pts). Gait- Impaired (20 pts.). Mental Status- Overestimates/Forgets Limitations (15 pts.). Total Parra Fall Scale indicates High Risk Score (45 or more points). Fall prevention measures have been instituted. Side Rails Up X 2 Placed Close to Nursing Station Frequent Obs/Assessments Occuring Family Present and informed to notify staff if the need to leave the bedside As available patient and family educated on Fall Prevention Program and Strategies. Primary Survey: 21:13 Breathing/Chest: Respiratory pattern: regular, Respiratory effort: spontaneous, ea unlabored, Breath sounds: clear. Circulation: Heart tones present. Skin color: pale, Skin temperature: warm. Disability Verbal Stimuli Painful Stimuli. 22:09 Reassessment Airway Airway Patent Breathing/Chest Respiratory pattern Regular ea Respiratory effort Spontaneous Unlabored Breath sounds Clear Circulation Color Nunda Temperature Warm. Secondary Survey: 21:13 Injury Description: Head injury sustained to forehead is open, was sustained 30-60 ea minutes ago. Assessment: 21:03 General: Appears in no apparent distress. Behavior is quiet. Pain: Unable to use pain ea scale. FLACC scale score is 2 out of 10. Neuro: Level of Consciousness is obeys commands, responds to painful and verbal stimuli. Oriented to none. Cardiovascular: Heart tones S1 S2 present Patient's skin is warm and dry. Respiratory: Airway is patent Respiratory effort is even, unlabored, Respiratory pattern is regular, symmetrical, Breath sounds are clear bilaterally. GI: Abdomen is non-distended, Bowel sounds present X 4 quads. Abd is soft and non tender X 4 quads. Derm: Skin is dry, Skin is pale, Skin temperature is warm. 22:05 Reassessment: Patient appears in no apparent distress at this time. Patient and/or ao family updated on plan of care and expected duration. Pain level reassessed. Patient is alert, oriented x 3, equal unlabored respirations, skin warm/dry/pink. 22:05 Reassessment: Patient and/or family updated on plan of care and expected duration. Pain ea level reassessed. Pt resting with eyes closed, respirations even and unlabored. Chest expansions even and symmetrical. No s/s of pain or discomfort noted at this time. at bedside. 22:55 Reassessment: Called report to Adriana RN Primary nurse. Primary nurse asked if ao Dermabond can be put on lacerations. Dr Redd was notified and ordered Dermabond. 23:20 Reassessment: Called back primary nurse Adriana at [facility] to arrange ao transportation and she stated she will arrange for EMS to take patient back to alf. 23:49 Reassessment: Waiting on EMS. Patient stable. at bedside. ao 23:49 Reassessment: Patient and/or family updated on plan of care and expected duration. Pain ea level reassessed. Pt resting with eyes closed. Respirations even and unlabored. Chest expansions even and symmetrical. No s/s of pain or discomfort noted at this time. 01/26 00:44 Reassessment: Pt resting with eyes closed, respirations even and unlabored. Chest ea expansions even and symmetrical. No s/s of pain or discomfort noted at this time. remains at bedside. Awaiting on transportation. 01:13 Reassessment: No changes from previously documented assessment. ea 02:00 Reassessment: DC instructions given to . Provided a copy to and a copy to alf. Patient waiting on transportation to alf. skilled nursing doesn't want to provide with transportation . left home. Vital Signs: 01/25 20:25 BP 82 / 61; Pulse 70; Resp 14; Temp 97.7(TE); Pulse Ox 98% on R/A; Weight 68.04 kg (R); fc Height 6 ft. 2 in. (187.96 cm) (R); Pain 0/10; 21:00 BP 93 / 65; Pulse 70; Resp 14; Pulse Ox 99% on R/A; ea 22:08 BP 107 / 73; Pulse 64; Resp 16; Pulse Ox 97% ; ea 23:00 BP 104 / 71; Pulse 63; Resp 16; Temp 97.6(TE); Pulse Ox 99% ; ea 01/26 00:03 BP 108 / 71; Pulse 53; Resp 16; Pulse Ox 100% on R/A; Pain 0/10; ao 01:11 BP 129 / 79; Pulse 65; Resp 16; Pulse Ox 97% on R/A; ea 01/25 20:25 Body Mass Index 19.26 (68.04 kg, 187.96 cm) fc [place] Coma Score: 01/25 20:25 Eye Response: spontaneous(4). Verbal Response: none(1). Motor Response: obeys ea commands(6). Total: 11. 21:00 Eye Response: spontaneous(4). Verbal Response: confused(4). Motor Response: obeys ea commands(6). Total: 14. 22:08 Eye Response: spontaneous(4). Verbal Response: confused(4). Motor Response: obeys ea commands(6). Total: 14. 23:00 Eye Response: spontaneous(4). Verbal Response: confused(4). Motor Response: obeys ea commands(6). Total: 14. Trauma Score (Adult): 20:25 Eye Response: spontaneous(1); Verbal Response: none(0); Motor Response: obeys ea commands(2); Systolic BP: 76 to 89 mm Hg(3); Respiratory Rate: 10 to 29 per min(4); Palmira Score: 11; Trauma Score: 10 ED Course: 20:25 Patient has correct armband on for positive identification. Bed in low position. Call fc light in reach. Side rails up X2. 20:25 Arm band placed on Patient placed in an exam room, on a stretcher. fc 20:25 Patient maintains SpO2 saturation greater than 95% on room air. fc 20:25 Thermoregulation: warm blanket given to patient. ea 20:35 Patient arrived in ED. am2 20:35 Toan Solares MD is Private Physician. am2 20:36 Neda Redd MD is Attending Physician. ma2 20:50 Triage completed. fc 20:51 Winston Patricia RN is Primary Nurse. ao 20:51 CT completed. Patient tolerated procedure well. Patient moved to CT. Patient moved back bb2 from CT. 20:52 CT Traumagram (Head C Spine CAP W Con) In Process Unspecified. EDMS 22:09 No provider procedures requiring assistance completed. ea 01/26 02:00 IV discontinued. ao Administered Medications: 01/25 20:32 Drug: NARcan 2 mg Route: IVP; Site: left wrist; ea 21:10 Follow up: Response: No adverse reaction ea 21:41 Drug: Tetanus-Diphtheria Toxoid Adult 0.5 ml {[employer]: [employer] Exp: ea 01/28/2020. Lot #: [id number]. } Route: IM; Site: left deltoid; 22:07 Follow up: Response: No adverse reaction ea Intake: 22:10 PO: 0ml; Total: 0ml. ea Outcome: 22:02 Discharge ordered by . ma2 23:51 Condition: improved ea 01/26 01:12 Patient's length of stay in the Emergency Department was greater than 2 hours. awaiting ea on transportation Patient's length of stay extended due to 01:59 Discharge instructions given to significant other, Instructed on Patient to be going ao alf. Called report to JOVAN Wright 02:00 Discharged to alf. Report called to JOVAN Wright 02:48 Patient left the ED. ao Signatures: Dispatcher [employer] EDMS Rosalind Gutiérrez RN RN fc Ortiz, Alex RN Sherly Ring am2 Sho Rubalcava RN RN ea Bock, Brittany bb2 Neda Redd MD MD ma2 Corrections: (The following items were deleted from the chart) 01/25 21:20 21:03 Neuro: Level of Consciousness is responds to painful and verbal stimuli. Oriented ea to none ea
--- NOTE | 2018-01-25 22:03 | EDPHYS ---
Physician Documentation [facility] Name: Adilson Pereira Age: 77 yrs Sex: Male : 1940 Arrival Date: 01/25/2018 Time: 20:35 Bed 4 Private MD: Toan Solares C ED Physician Neda Redd HPI: 01/25 21:03 Details of fall: The patient fell from seated position. Onset: The symptoms/episode ma2 began/occurred suddenly, 1 hour(s) ago. Associated injuries: The patient sustained injury to the head. Severity of symptoms: At their worst the symptoms were moderate, in the emergency department the symptoms are unchanged. The patient has experienced similar episodes in the past. on xarelto, take jason medication, from halfway, he is only responsive to painful stimulus and per the halfway this is his baseline . Historical: - Allergies: 20:59 Reopro; fc 20:59 Dbjbhny-Phe-Bvj Reductase Inhibitors; fc 20:59 tramadol; fc - Home Meds: 20:59 Miralax 17 gram/dose Oral powd once daily [Active]; Xarelto 10 mg oral tab 1 tab once fc daily [Active]; midodrine 2.5 mg Oral tab .5 tab 3 times per day [Active]; docusate sodium 100 mg Oral cap 1 cap once daily [Active]; carbidopa-levodopa 25-100 mg Oral tab 2 tabs 4 times per day [Active]; Ativan 0.5 mg Oral tab 1 tab tid prn [Active]; Seroquel 100 mg Oral tab 2.5 tabs nightly [Active]; - PMHx: 20:59 CAD; Myocardial infarction; hypotension; Kidney stones; Parkinsons; Dementia; BPH; fc Diverticulitis; osteoarthritis; - Immunization history: Last tetanus immunization: unknown. - Social history:: Smoking status: Patient/guardian denies using tobacco, Patient/guardian denies using alcohol, street drugs, The patient lives with family. - Ebola Screening: : Patient negative for fever greater than or equal to 101.5 degrees Fahrenheit, and additional compatible Ebola Virus Disease symptoms Patient denies exposure to infectious person Patient denies travel to an Ebola-affected area in the 21 days before illness onset. - Family history:: not pertinent. ROS: 21:14 Unable to obtain ROS due to altered mental status. ma2 Exam: 21:14 Chest/axilla: Normal chest wall appearance and motion. Nontender with no deformity. ma2 No lesions are appreciated. Cardiovascular: Regular rate and rhythm with a normal S1 and S2. No gallops, murmurs, or rubs. Normal PMI, no JVD. No pulse deficits. Respiratory: Lungs have equal breath sounds bilaterally, clear to auscultation and percussion. No rales, rhonchi or wheezes noted. No increased work of breathing, no retractions or nasal flaring. Abdomen/GI: Soft, non-tender, with normal bowel sounds. No distension or tympany. No guarding or rebound. No evidence of tenderness throughout. 21:14 Constitutional: The patient appears in obvious distress, mildly distressed, somnolent responsive to verbal stimulus and this is a baseline for him 21:14 Head/face: Noted is abrasion(s), that are moderate, of the face forehead. Vital Signs: 20:25 BP 82 / 61; Pulse 70; Resp 14; Temp 97.7(TE); Pulse Ox 98% on R/A; Weight 68.04 kg (R); fc Height 6 ft. 2 in. (187.96 cm) (R); Pain 0/10; 21:00 BP 93 / 65; Pulse 70; Resp 14; Pulse Ox 99% on R/A; ea 22:08 BP 107 / 73; Pulse 64; Resp 16; Pulse Ox 97% ; ea 23:00 BP 104 / 71; Pulse 63; Resp 16; Temp 97.6(TE); Pulse Ox 99% ; ea 01/26 00:03 BP 108 / 71; Pulse 53; Resp 16; Pulse Ox 100% on R/A; Pain 0/10; ao 01:11 BP 129 / 79; Pulse 65; Resp 16; Pulse Ox 97% on R/A; ea 01/25 20:25 Body Mass Index 19.26 (68.04 kg, 187.96 cm) fc Palmira Coma Score: 01/25 20:25 Eye Response: spontaneous(4). Verbal Response: none(1). Motor Response: obeys ea commands(6). Total: 11. 21:00 Eye Response: spontaneous(4). Verbal Response: confused(4). Motor Response: obeys ea commands(6). Total: 14. 22:08 Eye Response: spontaneous(4). Verbal Response: confused(4). Motor Response: obeys ea commands(6). Total: 14. 23:00 Eye Response: spontaneous(4). Verbal Response: confused(4). Motor Response: obeys ea commands(6). Total: 14. Trauma Score (Adult): 20:25 Eye Response: spontaneous(1); Verbal Response: none(0); Motor Response: obeys ea commands(2); Systolic BP: 76 to 89 mm Hg(3); Respiratory Rate: 10 to 29 per min(4); Palmira Score: 11; Trauma Score: 10 MDM: 20:42 Patient medically screened. [facility] 21:14 Differential diagnosis: abrasion, closed head injury, contusion, sprain, strain. [facility] 22:01 Data reviewed: vital signs, nurses notes. Counseling: I had a detailed discussion with [facility] the patient and/or guardian regarding: the historical points, exam findings, and any diagnostic results supporting the discharge/admit diagnosis, the presence of at least one elevated blood pressure reading (>120/80) during this emergency department visit, the need for outpatient follow up. 01/25 20:36 Order name: Basic Metabolic Panel [facility] 01/25 20:36 Order name: CBC with Diff [facility] 01/25 20:36 Order name: Creatinine for Radiology [facility] 01/25 20:36 Order name: Type And Screen [facility] 01/25 20:39 Order name: PT-INR [facility] 01/25 20:39 Order name: Ptt, Activated [facility] 01/25 20:36 Order name: CT Traumagram (Head C Spine CAP W Con); Complete Time: 21:43 [facility] 01/25 20:36 Order name: Labs collected and sent; Complete Time: 21:42 [facility] 01/25 22:03 Order name: Dressing - Wound: forehead; Complete Time: 23:02 [facility] 01/25 22:55 Order name: ABO/RH no charge [facility]AL 01/25 23:02 Order name: Dermabond; Complete Time: 23:02 ao Administered Medications: 20:32 Drug: NARcan 2 mg Route: IVP; Site: left wrist; ea 21:10 Follow up: Response: No adverse reaction ea 21:41 Drug: Tetanus-Diphtheria Toxoid Adult 0.5 ml {[employer]: [employer]. Exp: ea 01/28/2020. Lot #: [id number]. } Route: IM; Site: left deltoid; 22:07 Follow up: Response: No adverse reaction ea Disposition: 01/25/18 22:02 Discharged to Home. Impression: Acute post-traumatic headache. - Condition is Stable. - Medication Reconciliation Form, Thank You Letter, Antibiotic Education, Prescription Opioid Use form. - Follow up: Private Physician; When: Tomorrow; Reason: Continuance of care. - Problem is new. - Symptoms are unchanged. Signatures: Dispatcher [employer] EDMS Rosalind Gutiérrez RN RN fc Ortiz, Alex RN Sho Mcintyre RN RN ea Alzahri, Mohammad, MD MD ma2 Corrections: (The following items were deleted from the chart) 01/26 02:48 01/25 22:02 01/25/2018 22:02 Discharged to Home. Impression: Acute post-traumatic ao headache. Condition is Stable. Forms are Medication Reconciliation Form, Thank You Letter, Antibiotic Education, Prescription Opioid Use. Follow up: Private Physician; When: Tomorrow; Reason: Continuance of care. Problem is new. Symptoms are unchanged. ma2
[2018-01-25 22:16] LABS: Absolute Lymphocytes (CBC) 1.4 K/uL (0.7-4.9); Absolute Monocytes 0.4 K/uL (0.1-1.3); Basophils % 0.9 % (0-1.3); Eosinophils % 4.9 % (0-4.4); Hematocrit 31.6 % (39.6-49.0); MCH 31.1 pg (27.0-35.0); MCV 90.1 fL (80-100); MPV 9.3 fL (7.6-11.3); Monocytes % 5.2 % (3.3-12.3); RBC Red Blood Cell Count 3.51 M/uL (4.33-5.43)
[2018-01-25 22:25] LABS: BUN Blood Urea Nitrogen 23 mg/dL (7-18); Bicarbonate 29 mmol/L (21-32); Glucose Level 118 mg/dL (74-106); Potassium 3.2 mmol/L (3.5-5.1); Sodium Level 143 mmol/L (136-145)
[2018-01-25] MEDS ORDERED: DERMABOND SKIN ADHESIVE TOP ONE ×2 (23:11→23:22)
== END 2018-01-26 02:48 | disposition home or self-care (01) ==
LOC: ER 20:29
DX: G44.319 Acute post-traumatic headache, not intractable (principal); W19.XXXA Unspecified fall, initial encounter; Y93.9 Activity, unspecified; Y92.129 Unspecified place in nursing home as the place of occurrence of the external cause; Z79.01 Long term (current) use of anticoagulants; Z88.5 Allergy status to narcotic agent; Z88.8 Allergy status to other drugs, medicaments and biological substances; Z23 Encounter for immunization; I95.9 Hypotension, unspecified; G20 Parkinson's disease; F02.80 Dementia in other diseases classified elsewhere, unspecified severity, without behavioral disturbance, psychotic disturbance, mood disturbance, and anxiety; I25.2 Old myocardial infarction
CPT/HCPCS: 36415; 70450; 71260; 72125; 74177; 80048; 85025; 85610; 85730; 86850; 86900; 86901; 90714; Q9967; 96374; 99291; 99292